=== PATIENT | male | born 1975 | race Caucasian/White ===

== ENCOUNTER 2016-10-23 06:19 | Emergency (ER) | payer SELFPAY ==
[~2016-10-23] VITALS: Ht 188 cm; Wt 96.4 kg
[2016-10-23 06:29] VITALS: BP 133/83; PULSE 66; RESP 16; TEMP 97.6; O2SAT 100
[2016-10-23 07:41] VITALS: O2SAT 100
--- NOTE | 2016-10-23 07:42 | PD ---
HPI Chief Complaint: Back/ Neck Pain or Injury Time Seen by Provider: 07:01 Travel History International Travel<30 days: No Contact w/Intl Traveler<30days: No Traveled to known affect area: No History of Present Illness HPI 41-year-old male complains of left low back pain, left hip pain, numbness sensation to the buttock area. Patient states that the symptoms started 2 weeks ago. Patient states that the pain aching pain more severe around the left hip left groin area. Patient states that the pain radiated down the left leg. Patient denies any recent injury. Patient denies any fever chills. Patient denies any weakness of the left lower extremity. Patient denies any headache. Patient denies any chest pain or shortness of breath. Patient denies abdominal pain. PFSH Past Medical History Medical History: Denies Significant Hx Diminished Hearing: No Influenza Vaccination: Yes (UTD PER THE ) Past Surgical History Surgical History: No Previous Surgery Social History Alcohol Use: No Tobacco Use: No Substance Use: No Allergies-Medications (Allergen,Severity, Reaction): Coded Allergies: No Known Allergies (Unverified , 10/23/16) Reported Meds & Prescriptions Reported Meds & Active Scripts Active No Active Prescriptions or Reported Medications Review of Systems General / Constitutional: No: Fever Eyes: No: Visual changes HENT: No: Headaches Cardiovascular: No: Chest Pain or Discomfort Respiratory: No: Shortness of Breath Gastrointestinal: No: Abdominal Pain Genitourinary: No: Dysuria Musculoskeletal: Positive: Pain Skin: No Rash Neurologic: No: Weakness Psychiatric: No: Depression Endocrine: No: Polydipsia Hematologic/Lymphatic: No: Easy Bruising Physical Exam Narrative GENERAL: Well-nourished, well-developed patient. SKIN: Warm and dry. HEAD: Normocephalic. EYES: No scleral icterus. No injection or drainage. NECK: Supple, trachea midline. No JVD or lymphadenopathy. CARDIOVASCULAR: Regular rate and rhythm without murmurs, gallops, or rubs. RESPIRATORY: Breath sounds equal bilaterally. No accessory muscle use. GASTROINTESTINAL: Abdomen soft, non-tender, nondistended. MUSCULOSKELETAL: Patient has moderate tenderness on palpation left hip joint area with marked limitation the left hip joint on movement secondary to pain. No redness no heat noted. No swelling noted. BACK: Nontender without obvious deformity. No CVA tenderness. Neurologic exam normal. Data Data Last Documented VS Vital Signs Date Time Temp Pulse Resp B/P Pulse Ox O2 Delivery O2 Flow Rate FiO2 10/23/16 11:00 77 16 139/84 95 Room Air 10/23/16 06:29 97.6 Orders Complete Blood Count With Diff (10/23/16 07:08) Comprehensive Metabolic Panel (10/23/16 07:08) Prothrombin Time / Inr (Pt) (10/23/16 07:08) Act Partial Throm Time (Ptt) (10/23/16 07:08) Urinalysis - C+S If Indicated (10/23/16 07:08) Westergren Sedimentation Rate (10/23/16 07:08) Iv Access Insert/Monitor (10/23/16 07:08) Ecg Monitoring (10/23/16 07:08) Oximetry (10/23/16 07:08) Hip, Uni(Ap&Lat) W Ap Pelvis (10/23/16 07:08) Mri L Spine W&W/O Contrast (10/23/16 ) Mri Joint Hip W&W/O Contrast (10/23/16 ) Gadodiamide Pf Inj (Omniscan Pf Inj) (10/23/16 10:46) Ketorolac Inj (Toradol Inj) (10/23/16 11:15) Labs Laboratory Tests Test 10/23/16 07:35 White Blood Count 8.9 TH/MM3 Red Blood Count 5.54 MIL/MM3 Hemoglobin 15.9 GM/DL Hematocrit 49.2 % Mean Corpuscular Volume 88.9 FL Mean Corpuscular Hemoglobin 28.8 PG Mean Corpuscular Hemoglobin 32.4 % Concent Red Cell Distribution Width 11.9 % Platelet Count 186 TH/MM3 Mean Platelet Volume 8.4 FL Neutrophils (%) (Auto) 67.5 % Lymphocytes (%) (Auto) 19.2 % Monocytes (%) (Auto) 8.1 % Eosinophils (%) (Auto) 4.4 % Basophils (%) (Auto) 0.8 % Neutrophils # (Auto) 6.0 TH/MM3 Lymphocytes # (Auto) 1.7 TH/MM3 Monocytes # (Auto) 0.7 TH/MM3 Eosinophils # (Auto) 0.4 TH/MM3 Basophils # (Auto) 0.1 TH/MM3 CBC Comment DIFF FINAL Differential Comment Erythrocyte Sedimentation Rate 4 mm/hr Prothrombin Time 10.4 SEC Prothromb Time International 0.9 RATIO Ratio Activated Partial 29.4 SEC Thromboplast Time Urine Collection Type CLEAN CATCH Urine Color YELLOW Urine Turbidity CLEAR Urine pH 5.5 Urine Specific [place] 1.010 Urine Protein NEG mg/dL Urine Glucose (UA) NEG mg/dL Urine Ketones NEG mg/dL Urine Occult Blood TRACE Urine Nitrite NEG Urine Bilirubin NEG Urine Leukocyte Esterase NEG Urine RBC 0-3 /hpf Urine Squamous Epithelial 0-5 /hpf Cells Microscopic Urinalysis Comment CULT NOT INDICATED Urine Collection Time 07:35 Sodium Level 142 MEQ/L Potassium Level 4.2 MEQ/L Chloride Level 104 MEQ/L Carbon Dioxide Level 30.2 MEQ/L Anion Gap 8 MEQ/L Blood Urea Nitrogen 18 MG/DL Creatinine 0.97 MG/DL Estimat Glomerular Filtration 85 ML/MIN Rate Random Glucose 96 MG/DL Calcium Level 8.8 MG/DL Total Bilirubin 0.4 MG/DL Aspartate Amino Transf 10 U/L (AST/SGOT) Alanine Aminotransferase 26 U/L (ALT/SGPT) Alkaline Phosphatase 86 U/L Total Protein 7.5 GM/DL Albumin 3.6 GM/DL MDM Medical Decision Making Medical Screen Exam Complete: Yes Emergency Medical Condition: Yes Interpretation(s) 12:05 PM. Last Impressions Hip and Pelvis X-Ray 10/23/16 0708 Signed Impressions: Service Date/Time: Sunday, October 23, 2016 07:20 - CONCLUSION: Radiographic appearance of the left hip is within normal limits. Eldon Monge MD Lumbar Spine MRI 10/23/16 0000 Signed Impressions: Service Date/Time: Sunday, October 23, 2016 10:03 - CONCLUSION: 1. Mild left neural foraminal narrowing at L4-5 secondary to mild diffuse slightly asymmetric disc osteophyte complex to the left. 2. Minimal right neural foraminal narrowing at L5-S1 secondary to minimal diffuse asymmetric disc osteophyte complex to the right. 3. Mild degenerative disc disease at L2-3 and L3-4 resulting in minimal diffuse disc osteophyte complexes without spinal stenosis or neural foraminal narrowing. Javon Storey MD Hip MRI 10/23/16 0000 Signed Impressions: Service Date/Time: Sunday, October 23, 2016 10:03 - CONCLUSION: 1. No fracture, dislocation or other bony abnormality involving the left hip. 2. Tiny 9 mm cyst within the subcapital region of the right proximal femur. Javon Storey MD 12:06 PM. CBC within normal limit. CMP within normal limit. Sedimentation rate 4. UA is negative. Differential Diagnosis Differential diagnosis including bursitis, tendinitis, radiculopathy, ligament injury, septic joint. Narrative Course 41-year-old male with left low back pain, left hip pain, numbness of the buttock area. Toradol 30 mg IV. Decadron 8 mg IV. Diagnosis Primary Impression: Radiculopathy Qualified Code: M54.16 - Lumbar radiculopathy Additional Impression: Tendinitis Patient Instructions: General Instructions Additional Instructions: Medications as directed. Follow-up with orthopedist. Med/Other Pt SpecificInfo: Prescription(s) given Scripts Hydrocodone-Acetaminophen ([place])5-325 mg Tab1 Tab PO Q6H PRN (PAIN) #20 TAB Prov:Franc Saini MD 10/23/16 Prednisone 20 Mg Tab20 Mg PO DAILY #7 TAB Prov:Franc Saini MD 10/23/16 Meloxicam (Mobic)15 Mg Tab15 Mg PO DAILY #30 TAB Prov:Franc Saini MD 10/23/16 Disposition: 01 DISCHARGE HOME Condition: Stable Franc Saini MD Oct 23, 2016 07:42
[2016-10-23 07:44] LABS: BASOPHIL # 0.1 TH/MM3 (0-0.2); BASOPHIL % 0.8 % (0.0-2.0); BLOOD, URINE TRACE (NEG); EOSINOPHIL # 0.4 TH/MM3 (0-0.4); EOSINOPHIL % 4.4 % (0.0-4.0); GLUCOSE,URINE NEG (NEG); HEMATOCRIT 49.2 % (39.0-51.0); HEMO FLAGS DIFF FINAL; KETONE, URINE NEG (NEG); LYMPH % 19.2 % (9.0-44.0); LYMPHOCYTE # 1.7 TH/MM3 (1.0-4.8); MEAN CELL VOLUME 88.9 FL (80.0-100.0); MEAN CORPUSCULAR HEMOGLOBIN 28.8 PG (27.0-34.0); MEAN CORPUSCULAR HGB CONC 32.4 % (32.0-36.0); MONO % 8.1 % (0.0-8.0); NEUT % 67.5 % (16.0-70.0); NITRITE,URINE NEG (NEG); PH, URINE 5.5 (5.0-8.5); PLATELET COUNT 186 TH/MM3 (150-450); RED BLOOD COUNT 5.54 MIL/MM3 (4.50-5.90); RED CELL DISTRIBUTION WIDTH 11.9 % (11.6-17.2); WHITE BLOOD COUNT 8.9 TH/MM3 (4.0-11.0)
[2016-10-23 07:52] LABS: COMMENT (UR) CULT NOT INDICATED; CULTURE IF INDICATED CULT NOT INDICATED; METHOD OF COLLECTION CLEAN CATCH; RBC, URINE 0-3 /hpf (0-3); SQUAMOUS EPITHELIAL CELL URINE 0-5 /hpf (0-5); URINE COLOR YELLOW (YELLW/STRAW)
--- NOTE | 2016-10-23 07:58 | RADHPO ---
EXAM DATE/TIME: 10/23/2016 07:20 [facility] COMPARISON: No previous studies available for comparison. INDICATIONS : Pain shooting in low back and down left leg. MEDICAL HISTORY : None. SURGICAL HISTORY : None. ENCOUNTER: Initial ACUITY: 2 weeks PAIN SCORE: 10/10 LOCATION: Left leg and lower back FINDINGS: Examination of the left hip was performed with AP Pelvis. The primary and secondary trabecular patte rn of the femoral neck is intact. The hip joint is of normal width without significant sclerosis or bony hypertrophy. The acetabulum is grossly intact. CONCLUSION: Radiographic appearance of the left hip is within normal limits. Eldon Monge MD on October 23, 2016 at 7:56 Board Certified Radiologist. This report was verified electronically.
[2016-10-23 07:59] LABS: APTT (PATIENT) 29.4 SEC (24.3-30.1); INTERNATIONAL NORMALIZED RATIO 0.9 RATIO; PROTHROMBIN TIME - PATIENT 10.4 SEC (9.8-11.6)
[2016-10-23 08:04] LABS: CHLORIDE 104 MEQ/L (98-107); POTASSIUM 4.2 MEQ/L (3.5-5.1); SODIUM (NA) 142 MEQ/L (136-145)
[2016-10-23 08:08] LABS: ANION GAP 8 MEQ/L (5-15); BICARBONATE 30.2 MEQ/L (21.0-32.0); BLOOD UREA NITROGEN 18 MG/DL (7-18)
[2016-10-23 08:11] LABS: ALT (GPT) 26 U/L (12-78); AST (GOT) 10 U/L (15-37); GLOMERULAR FILTRATION RATE 85 ML/MIN (>89)
[2016-10-23 08:13] LABS: TOTAL BILIRUBIN ADULT 0.4 MG/DL (0.2-1.0)
[2016-10-23 08:14] LABS: ALKALINE PHOSPHATASE 86 U/L (45-117)
[2016-10-23] MEDS ORDERED: GADODIAMIDE PF 287 MG/ML 20 ML VIAL (for RAD MRI) IV ONE (10:46)
[2016-10-23 11:00] VITALS: BP 139/84; PULSE 77; RESP 16; O2SAT 95
--- NOTE | 2016-10-23 11:07 | RADHPO ---
EXAM DATE/TIME: 10/23/2016 10:03 [facility] COMPARISON: HIP LEFT (AP&LAT 2/3VWS) W AP PELVIS, October 23, 2016, 7:20. INDICATIONS : Left hip pain. CONTRAST: 19 cc Omniscan (gadodiamide) IV MEDICAL HISTORY : None. SURGICAL HISTORY : None. ENCOUNTER: Subsequent ACUITY: 2 weeks PAIN SCORE: 10/10 LOCATION: Left hip TECHNIQUE: Multiplanar, multisequence MRI examination was performed without contrast and after the intravenous a dministration of gadolinium. FINDINGS: BONE/CARTILAGE: Bone marrow signal is homogeneous. Articular cartilage signal is within normal limits. There is a tin y 9 mm cyst within the subcapital region of the right proximal femur. LABRUM: Within normal limits. MUSCLES/TENDONS: All of the visualized muscles and tendons are intact. MISCELLANEOUS: No evidence of joint effusion. POST-CONTRAST: There are no abnormal areas of enhancement on the post-contrast images. CONCLUSION: 1. No fracture, dislocation or other bony abnormality involving the left hip. 2. Tiny 9 mm cyst within the subcapital region of the right proximal femur. Javon Storey MD on October 23, 2016 at 11:01 Board Certified Radiologist. This report was verified electronically.
[2016-10-23] MEDS ORDERED: KETOROLAC TROMETHAMINE 30 MG/ML (IVP) VIAL IV PUSH ONE (11:15)
--- NOTE | 2016-10-23 11:26 | RADHPO ---
EXAM DATE/TIME: 10/23/2016 10:03 [facility] COMPARISON: No previous studies available for comparison. INDICATIONS: Pain. Lower back pain. CONTRAST: 19 cc Omniscan (gadodiamide) IV MEDICAL HISTORY: None. SURGICAL HISTORY: None. ENCOUNTER: Subsequent ACUITY: 2 weeks PAIN SCORE: 10/10 LOCATION: Left hip TECHNIQUE: Multiplanar multisequence MRI of the lumbar spine was performed with and without contrast. FINDINGS: The sagittal images demonstrate loss of disc height and signal intensity at L2-3 and L3-4 disc spaces consistent with degenerative disc disease. The L1-2, L4-5, and L5-S1 disc spaces are relatively wel l maintained in height and signal intensity. The lumbar vertebral bodies are normal in height and ma rrow intensity. T12-L1: There is significant spinal stenosis, disc bulge or herniation. The bilateral neural foramina are pa tent. The facet joints and ligaments are unremarkable. L1-2: There is significant spinal stenosis, disc bulge or herniation. The bilateral neural foramina are pa tent. The facet joints and ligaments are unremarkable. L2-3: There is a minimal diffuse disc osteophyte complex which result in minimal flattening of the anterior thecal sac. No spinal stenosis or focal disc herniation is noted. the facet joints and ligaments a re unremarkable. L3-4: There is some minimal diffuse disc osteophyte resulting in minimal flattening of the anterior thecal sac. No spinal stenosis or focal disc herniation is noted. The bilateral neural foramina are patent . The facet joints and ligaments are unremarkable. L4-5: There is a mild diffuse slightly asymmetric disc osteophyte complex to the left which results in mild left neural foraminal narrowing. The right neural foramina is patent. The facet joints and ligamen ts are unremarkable. L5-S1: There is a mild diffuse asymmetric disc osteophyte complex to the right which results in no significa nt spinal stenosis. Minimal right neural foraminal narrowing is noted. The left neural foramina is patent. No focal disc herniation is noted. The facet joints and ligaments are unremarkable. No abnormally enhancing mass lesions are identified. CONCLUSION: 1. Mild left neural foraminal narrowing at L4-5 secondary to mild diffuse slightly asymmetric disc o steophyte complex to the left. 2. Minimal right neural foraminal narrowing at L5-S1 secondary to minimal diffuse asymmetric disc os teophyte complex to the right. 3. Mild degenerative disc disease at L2-3 and L3-4 resulting in minimal diffuse disc osteophyte comp lexes without spinal stenosis or neural foraminal narrowing. Javon Storey MD on October 23, 2016 at 11:06 Board Certified Radiologist. This report was verified electronically.
[2016-10-23] MEDS ORDERED: NORC5TAB PO (12:12)
[2016-10-23] MEDS ORDERED: MOBI15TA PO (12:12)
[2016-10-23] MEDS ORDERED: PRED20 PO (12:12)
[2016-10-23] MEDS ORDERED: DEXAMETHASONE SOD PHOS 4 MG/ML VIAL IV PUSH ONE (12:15)
[2016-10-23 12:20] VITALS: BP 108/74; PULSE 76; RESP 14; O2SAT 95
== END 2016-10-23 12:30 | disposition home or self-care (01) ==
LOC: PHED 06:19
DX: M54.16 Radiculopathy, lumbar region (principal); M77.9 Enthesopathy, unspecified
CPT/HCPCS: 72158; 73502; 73723; 80053; 81001; 85025; 85610; 85652; 85730; 96374; 96375; 99284; A9579; J1100; J1885

== ENCOUNTER 2016-11-19 08:41 | Emergency (ER) | payer SELFPAY ==
[~2016-11-19] VITALS: Ht 188 cm; Wt 96.1 kg
[~2016-11-19 08:41] MED LIST: MOBI15TA PO; NORC5TAB PO; PRED20 PO
[2016-11-19 08:44] VITALS: BP 137/91; PULSE 69; RESP 20; TEMP 97.9; O2SAT 100
[2016-11-19 09:47] VITALS: BP 110/75; PULSE 63; RESP 20; O2SAT 98
[2016-11-19 10:05] LABS: AUTOMATED NEUTROPHIL # 4.2 TH/MM3 (1.8-7.7); BASOPHIL % 0.6 % (0.0-2.0); EOSINOPHIL # 0.4 TH/MM3 (0-0.4); EOSINOPHIL % 5.9 % (0.0-4.0); HEMATOCRIT 46.7 % (39.0-51.0); HEMO FLAGS DIFF FINAL; LYMPH % 19.1 % (9.0-44.0); LYMPHOCYTE # 1.2 TH/MM3 (1.0-4.8); MEAN CELL VOLUME 86.9 FL (80.0-100.0); MEAN CORPUSCULAR HEMOGLOBIN 28.7 PG (27.0-34.0); MONO % 8.6 % (0.0-8.0); NEUT % 65.8 % (16.0-70.0); PLATELET COUNT 178 TH/MM3 (150-450); RED BLOOD COUNT 5.38 MIL/MM3 (4.50-5.90); RED CELL DISTRIBUTION WIDTH 11.5 % (11.6-17.2); WHITE BLOOD COUNT 6.4 TH/MM3 (4.0-11.0)
[2016-11-19 10:14] LABS: CHLORIDE 109 MEQ/L (98-107); POTASSIUM 4.2 MEQ/L (3.5-5.1); SODIUM (NA) 144 MEQ/L (136-145)
[2016-11-19 10:18] LABS: ANION GAP 6 MEQ/L (5-15); BICARBONATE 29.2 MEQ/L (21.0-32.0); BLOOD UREA NITROGEN 17 MG/DL (7-18)
[2016-11-19 10:21] LABS: ALT (GPT) 36 U/L (12-78); AST (GOT) 13 U/L (15-37); GLOMERULAR FILTRATION RATE 87 ML/MIN (>89)
[2016-11-19 10:22] LABS: TOTAL BILIRUBIN ADULT 0.4 MG/DL (0.2-1.0)
[2016-11-19 10:24] LABS: ALKALINE PHOSPHATASE 84 U/L (45-117)
[2016-11-19 10:26] LABS: APTT (PATIENT) 29.5 SEC (24.3-30.1); PROTHROMBIN TIME - PATIENT 10.7 SEC (9.8-11.6)
--- NOTE | 2016-11-19 10:30 | PD ---
HPI Chief Complaint: GI Complaint Time Seen by Provider: 08:53 Travel History International Travel<30 days: No Contact w/Intl Traveler<30days: No Traveled to known affect area: No History of Present Illness HPI This is a 41-year-old male who presents to the emergency department with 1 month of blood in his stools. He reports that 2 weeks ago he was seen in the emergency department and he was having severe low back and hip pain to the point where he couldn't stand. At that time he had an extensive workup including an MRI which was all reassuring. He had no workup at that time for his blood in his stool. He says over the past week he's been having increasing loose stools and the toilet bowl as been filled with blood. He's been going to the bathroom multiple times per day. He denies any lightheadedness or dizziness. He denies any abdominal pain. He has had some subjective fevers and chills. He has no family history of inflammatory bowel disease and he's never had problems with GI bleeding in the past. He's not been on any antibiotics recently. [facility] Past Medical History Medical History: Denies Significant Hx Diminished Hearing: No Tetanus Vaccination: < 5 Years Influenza Vaccination: No Past Surgical History Surgical History: No Previous Surgery Social History Alcohol Use: No Tobacco Use: No Substance Use: No Allergies-Medications (Allergen,Severity, Reaction): Coded Allergies: No Known Allergies (Unverified , 11/19/16) Reported Meds & Prescriptions Reported Meds & Active Scripts Active No Active Prescriptions or Reported Medications Review of Systems Except as stated in HPI: all other systems reviewed are Neg Physical Exam Narrative GENERAL:Well appearing, no acute distress SKIN: Warm and dry. HEAD: Atraumatic. Normocephalic. EYES: Pupils equal and round. No injection or drainage. ENT: Moist mucous membranes NECK: Trachea midline. CARDIOVASCULAR: Regular rate and rhythm. No murmur appreciated. RESPIRATORY: Clear to auscultation. Breath sounds equal bilaterally. GASTROINTESTINAL: Abdomen soft, non-tender, nondistended. MUSCULOSKELETAL: No obvious deformities. NEUROLOGICAL: Awake and alert. No obvious cranial nerve deficits. Moving all extremities. PSYCHIATRIC: Appropriate mood and affect; insight and judgment normal. Data Data Last Documented VS Vital Signs Date Time Temp Pulse Resp B/P Pulse Ox O2 Delivery O2 Flow Rate FiO2 11/19/16 08:44 97.9 69 20 137/91 100 Orders Complete Blood Count With Diff (11/19/16 09:24) Comprehensive Metabolic Panel (11/19/16 09:24) Prothrombin Time / Inr (Pt) (11/19/16 09:24) Act Partial Throm Time (Ptt) (11/19/16 09:24) Labs Laboratory Tests Test 11/19/16 09:40 White Blood Count 6.4 TH/MM3 Red Blood Count 5.38 MIL/MM3 Hemoglobin 15.4 GM/DL Hematocrit 46.7 % Mean Corpuscular Volume 86.9 FL Mean Corpuscular Hemoglobin 28.7 PG Mean Corpuscular Hemoglobin 33.0 % Concent Red Cell Distribution Width 11.5 % Platelet Count 178 TH/MM3 Mean Platelet Volume 8.9 FL Neutrophils (%) (Auto) 65.8 % Lymphocytes (%) (Auto) 19.1 % Monocytes (%) (Auto) 8.6 % Eosinophils (%) (Auto) 5.9 % Basophils (%) (Auto) 0.6 % Neutrophils # (Auto) 4.2 TH/MM3 Lymphocytes # (Auto) 1.2 TH/MM3 Monocytes # (Auto) 0.6 TH/MM3 Eosinophils # (Auto) 0.4 TH/MM3 Basophils # (Auto) 0.0 TH/MM3 CBC Comment DIFF FINAL Differential Comment Prothrombin Time 10.7 SEC Prothromb Time International 1.0 RATIO Ratio Activated Partial 29.5 SEC Thromboplast Time Sodium Level 144 MEQ/L Potassium Level 4.2 MEQ/L Chloride Level 109 MEQ/L Carbon Dioxide Level 29.2 MEQ/L Anion Gap 6 MEQ/L Blood Urea Nitrogen 17 MG/DL Creatinine 0.95 MG/DL Estimat Glomerular Filtration 87 ML/MIN Rate Random Glucose 92 MG/DL Calcium Level 8.5 MG/DL Total Bilirubin 0.4 MG/DL Aspartate Amino Transf 13 U/L (AST/SGOT) Alanine Aminotransferase 36 U/L (ALT/SGPT) Alkaline Phosphatase 84 U/L Total Protein 6.9 GM/DL Albumin 3.4 GM/DL [facility] Medical Decision Making Medical Screen Exam Complete: Yes Emergency Medical Condition: Yes Interpretation(s) Afebrile, no tachycardia, mild hypertension No leukocytosis Electrolytes are reassuring Coags are normal Differential Diagnosis Inflammatory bowel disease, colitis, hemorrhoids, anal fissure Narrative Course This is a 41-year-old male who presents to the emergency department with bloody diarrhea that's been present for one month. He is very well-appearing and well- hydrated. Labs are obtained which were reassuring with a normal hemoglobin, normal coags, and no evidence of dehydration. On rectal exam he has no evidence of hemorrhoids renal fissure. I suspect the patient may have inflammatory bowel disease. Definitively this will need to be diagnosed with colonoscopy. Patient was referred to gastroenterology. Diagnosis Primary Impression: Bloody diarrhea Referrals: [facility] Patient Instructions: General Instructions Additional Instructions: If you develop severe or worsening abdominal pain, fever>100.4, persistent vomiting or inability to eat or drink return to the emergency department immediately. Follow-up with a marriage and family counselor as soon as possible. Med/Other Pt SpecificInfo: No Change to Meds Scripts No Active Prescriptions or Reported Meds Disposition: 01 DISCHARGE HOME Condition: Stable Rosa Dutta MD Nov 19, 2016 09:48
[2016-11-19 11:05] VITALS: BP 140/90; PULSE 87; RESP 14; O2SAT 100
== END 2016-11-19 11:05 | disposition home or self-care (01) ==
LOC: PHED 08:41
DX: R19.7 Diarrhea, unspecified (principal); K92.1 Melena
CPT/HCPCS: 80053; 85025; 85610; 85730; 99284